=== PATIENT | male | born 1985 | race Two or more races ===

== ENCOUNTER 2017-03-03 11:03 | Emergency (ER) | payer BC ==
[~2017-03-03] VITALS: Ht 185.4 cm
[2017-03-03] MEDS ORDERED: CIPRO500 M2 PO (13:05)
[2017-03-03 13:10] LABS: URINE APPEARANCE CLEAR; URINE BILIRUBIN NEGATIVE (NEG); URINE BLOOD NEGATIVE (NEG); URINE COLOR YELLOW; URINE GLUCOSE (UA) NEGATIVE (NEG); URINE KETONE NEGATIVE (NEG); URINE LEUKOCYTE ESTERASE NEGATIVE (NEG); URINE NITRITE NEGATIVE (NEG); URINE PROTEIN MODERATE (NEG)
[2017-03-03 13:35] LABS: BASO % 0.6 % (0-2); EOS % 0.6 % (0-7); HGB-HEMOGLOBIN 14.9 gm/dl (13.5-17.0); IMMATURE GRANULOCYTES ABSOLUTE 0.03 tho/cmm (0-0.03); IMMATURE GRANULOCYTES PERCENT 0.5 % (0-0.3); LYMPH % 27.2 % (20-45); LYMPH ABSOLUTE COUNT 1.8 tho/cmm (0.8-4.5); MCH (MEAN CORPUSCULAR HGB) 27.7 pg (28.0-32.0); MCHC MEAN CORPUSCULAR HGB CONC 33.9 % (32.0-36.0); MCV (MEAN CELL VOLUME) 81.8 fl (82.0-96.0); MONOCYTE ABSOLUTE COUNT 0.5 tho/cmm (0.0-1.2); NEUTROPHIL ABSOLUTE COUNT 4.1 tho/cmm (1.6-8.0); NEUTROPHIL-AUTOMATED 4.1 tho/cmm (1.6-8.0); NEUTROPHILS % 63.1 % (40-80); PLATELET COUNT 196 tho/cmm (150-450); RED BLOOD COUNT 5.38 mil/cmm (4.40-5.70); RED CELL DISTRIBUTION WIDTH 15.2 % (12.4-16.4); WHITE BLOOD COUNT 6.5 tho/cmm (4.0-10.0)
[2017-03-03 13:51] LABS: ANION GAP 8 mmol/L (0-20); BLOOD UREA NITROGEN 10 mg/dl (6-24); CALCIUM 8.9 mg/dl (8.5-10.5); CARBON DIOXIDE-VENOUS 30 mmol/L (22-32); CHLORIDE 103 mmol/l (96-110); CREATININE 0.95 mg/dl (0.60-1.30); GLUCOSE 105 mg/dL (70-110); POTASSIUM 4.2 mmol/L (3.7-5.1); SODIUM 137 mmol/L (135-145); eGFR VALUE FOR BLACK >90 mL/Min
[2017-03-03] MEDS ORDERED: COMPAZINE10 MG PO (14:36)
[2017-03-03] MEDS ORDERED: MECLIZINE HCL25 M3 PO (14:36)
== END 2017-03-03 14:48 ==
LOC: EDMED 11:03
PROVIDERS: Emergency Medicine
DX: R42 Dizziness and giddiness (principal); N39.0 Urinary tract infection, site not specified; K21.9 Gastro-esophageal reflux disease without esophagitis; R07.89 Other chest pain